=== PATIENT | female | born 1950 | race Caucasian/White ===

== ENCOUNTER → 2016-08-05 | Outpatient (CLI) | payer OTHER, MEDICARE ==
[~2016-08-05] MED LIST: BUPIVACAINE/PF 0.5% ONE; LIDOCAINE 1%, 20ML ONE; ROPivacaine/PF 0.2%, 10 ML ONE; SODIUM BICARBONATE 4.2%, 5ML ONE; TRIAMCINOLONE ACETONIDE 40 MG/ML, 1ML ONE
== END | disposition home or self-care (01) ==
LOC: RAD 12:45
PROVIDERS: ATTEND Nurse Practitioner
DX: M06.872 Other specified rheumatoid arthritis, left ankle and foot (principal); E11.9 Type 2 diabetes mellitus without complications
CPT/HCPCS: 77002; J2795; J3301; J3490

== ENCOUNTER 2016-11-01 06:39 | Day surgery (SDC) | payer OTHER, MEDICARE ==
[~2016-11-01] VITALS: Ht 157.5 cm; Wt 121.8 kg
[~2016-11-01 06:39] MED LIST changes: +ALBU8.5H3 INH; +AMLO10TA2 PO; +ASCO-96 PO; +ASPI-496 PO; +ATOR10TA9 PO; +BECL8.7A5 INH; -BUPIVACAINE/PF 0.5% ONE; +CALC1TAB PO; +CHOL10003 PO; +CYCL-259 PO; +FURO20TA3 PO; +GABA300C10 PO; +GLYC2TAB13 PO; +IPRA3AMP INH; -LIDOCAINE 1%, 20ML ONE; +LOSA100T6 PO; +METF500T PO; +METF500T4 PO; +MULT-516 PO; +OMEG1CAP57 PO; +RALO60TA12 PO; -ROPivacaine/PF 0.2%, 10 ML ONE; +SITA50TA PO; -SODIUM BICARBONATE 4.2%, 5ML ONE; -TRIAMCINOLONE ACETONIDE 40 MG/ML, 1ML ONE; +VITA1TAB19 PO; +Vitamin B12 PO; +[UNRECOGNIZED DRUG - OTHER] PO; +nexium PO
[2016-11-01] MEDS ORDERED: LACTATED RINGERS 1,000 ML IV SCH (07:05)
[2016-11-01 07:12] VITALS: BP 170/79
[2016-11-01] MEDS ORDERED: PROPOFOL 10 MG/ML, 20ML ONE (08:36)
[2016-11-01] MEDS ORDERED: ONDANSETRON 2MG/ML, 2ML IVPush PRN (09:30)
[2016-11-01] MEDS ORDERED: MIDAZOLAM 1 MG/ML, 2ML IV PRN (09:30)
[2016-11-01] MEDS ORDERED: ALBUTEROL/IPRATROPIUM 2.5MG/0.5MG, 3 ML NPPB PRN (09:30)
[2016-11-01] MEDS ORDERED: METOCLOPRAMIDE 5 MG/ML, 2ML IV PRN (09:30)
[2016-11-01] MEDS ORDERED: hydrALAzine 20 MG/ML, 1ML IV PRN (09:30)
[2016-11-01] MEDS ORDERED: PROMETHAZINE 25 MG/ML, 1ML IV PRN (09:30)
[2016-11-01] MEDS ORDERED: LABETALOL 5MG/ML, 20ML IV PRN (09:30)
[2016-11-01] MEDS ORDERED: OXYcodone 5 MG/5 ML ORAL.SOL UDC PO PRN (09:30)
[2016-11-01] MEDS ORDERED: FENTANYL PF 100 MCG/2ML IV PRN (09:30)
[2016-11-01] MEDS ORDERED: HYDROmorphone 1 MG/ML, 1ML IV PRN (09:30)
[2016-11-01] MEDS ORDERED: ACETAMINOPHEN 325 MG TABLET PO PRN (09:30)
== END 2016-11-01 10:05 ==
LOC: OUT 06:39
PROVIDERS: ATTEND Internal Medicine Gastroenterology
DX: Z09 Encounter for follow-up examination after completed treatment for conditions other than malignant neoplasm (principal); Z86.010 Personal history of colon polyps; K57.30 Diverticulosis of large intestine without perforation or abscess without bleeding; K64.4 Residual hemorrhoidal skin tags; J45.909 Unspecified asthma, uncomplicated; I10 Essential (primary) hypertension; Z87.39 Personal history of other diseases of the musculoskeletal system and connective tissue; Z88.5 Allergy status to narcotic agent; Z88.8 Allergy status to other drugs, medicaments and biological substances; Z91.09 Other allergy status, other than to drugs and biological substances
CPT/HCPCS: 82962; G0105; J2704; J7120

== ENCOUNTER → 2017-03-10 | Outpatient (CLI) | payer OTHER, MEDICARE ==
[~2017-03-10] MED LIST changes: -ALBU8.5H3 INH; +ALBU8.5H8 INH; -BECL8.7A5 INH; +BECL8.7A7 INH; -GLYC2TAB13 PO; +GLYC2TAB21 PO; +REGADENOSON 0.4 MG/5 ML SYRINGE ONE
== END | disposition home or self-care (01) ==
LOC: CFH 12:05
PROVIDERS: ATTEND Internal Medicine Cardiovascular Disease
DX: R07.89 Other chest pain (principal); I10 Essential (primary) hypertension; E11.9 Type 2 diabetes mellitus without complications
CPT/HCPCS: 78452; 93017; A9502; J2785

== ENCOUNTER → 2017-06-13 | Outpatient (CLI) | payer OTHER, MEDICARE ==
[~2017-06-13] MED LIST changes: +LIDOCAINE 1%, 20ML ONE; -REGADENOSON 0.4 MG/5 ML SYRINGE ONE; +ROPivacaine/PF 0.2%, 10 ML ONE; +TRIAMCINOLONE ACETONIDE 40 MG/ML, 1ML ONE
== END | disposition home or self-care (01) ==
LOC: RAD 12:42
PROVIDERS: ATTEND Orthopaedic Surgery
DX: M72.2 Plantar fascial fibromatosis (principal)
CPT/HCPCS: 20605; 77002; J2795; J3301; J3490

== ENCOUNTER → 2017-10-24 | Outpatient (CLI) | payer MEDICARE, OTHER ==
[~2017-10-24] MED LIST changes: -IPRA3AMP INH; +IPRA3AMP30 INH; -LIDOCAINE 1%, 20ML ONE; -METF500T4 PO; +METF500T5 PO; -ROPivacaine/PF 0.2%, 10 ML ONE; -TRIAMCINOLONE ACETONIDE 40 MG/ML, 1ML ONE
== END | disposition home or self-care (01) ==
LOC: CFH 10:08
PROVIDERS: ATTEND Internal Medicine Critical Care Medicine
DX: I10 Essential (primary) hypertension (principal); E11.9 Type 2 diabetes mellitus without complications; K21.9 Gastro-esophageal reflux disease without esophagitis
CPT/HCPCS: 71250

== ENCOUNTER → 2017-11-13 | Outpatient (CLI) | payer MEDICARE, OTHER ==
[~2017-11-13] MED LIST changes: +LIDOCAINE-MPF 2%, 2ML ONE; +ROPivacaine/PF 0.2%, 10 ML ONE; +TRIAMCINOLONE ACETONIDE 40 MG/ML, 1ML ONE
== END | disposition home or self-care (01) ==
LOC: RAD 09:04
PROVIDERS: ATTEND Orthopaedic Surgery
DX: M19.072 Primary osteoarthritis, left ankle and foot (principal); Z88.1 Allergy status to other antibiotic agents; Z88.5 Allergy status to narcotic agent; Z88.8 Allergy status to other drugs, medicaments and biological substances; Z87.891 Personal history of nicotine dependence
CPT/HCPCS: 20605; 77002; J3301; J2795; J3490

== ENCOUNTER 2018-04-21 11:39 | Outpatient (CLI) | payer MEDICARE, OTHER ==
[~2018-04-21 11:39] MED LIST changes: -AMLO10TA2 PO; +AMLO10TA8 PO; -LIDOCAINE-MPF 2%, 2ML ONE; +LOSA100T14 PO; -LOSA100T6 PO; +METF500T17 PO; -METF500T5 PO; -ROPivacaine/PF 0.2%, 10 ML ONE; -TRIAMCINOLONE ACETONIDE 40 MG/ML, 1ML ONE
[2018-04-21] MEDS ORDERED: ROPivacaine/PF 0.2%, 10 ML ONE (12:03)
[2018-04-21] MEDS ORDERED: TRIAMCINOLONE ACETONIDE 40 MG/ML, 1ML ONE (12:03)
== END 2018-04-21 23:59 | disposition home or self-care (01) ==
LOC: RAD 11:39
PROVIDERS: ATTEND Nurse Practitioner
DX: M19.072 Primary osteoarthritis, left ankle and foot (principal)
CPT/HCPCS: 20605; 77002; J2795; J3301

== ENCOUNTER 2019-01-01 08:34 | Outpatient (CLI) | payer MEDICARE, OTHER ==
[2019-01-01] MEDS ORDERED: BUPIVACAINE/PF 0.5% ONE (08:55)
[2019-01-01] MEDS ORDERED: LIDOCAINE-MPF 1%, 5ML ONE (08:55)
[2019-01-01] MEDS ORDERED: TRIAMCINOLONE ACETONIDE 40 MG/ML, 1ML ONE (08:55)
== END 2019-01-01 23:59 | disposition home or self-care (01) ==
LOC: RAD 08:34
PROVIDERS: ATTEND Nurse Practitioner
DX: M19.072 Primary osteoarthritis, left ankle and foot (principal)
CPT/HCPCS: 20600; 77002; J3301; 10005

== ENCOUNTER 2019-06-04 10:04 | Outpatient (CLI) | payer MEDICARE, OTHER | END 2019-06-04 23:59 | disposition home or self-care (01) | LOC: CFH 10:04 | PROVIDERS: ATTEND Internal Medicine Cardiovascular Disease | DX: I25.10 Atherosclerotic heart disease of native coronary artery without angina pectoris (principal); E78.2 Mixed hyperlipidemia | CPT/HCPCS: 75571 ==

== ENCOUNTER 2019-06-14 14:17 | Outpatient (CLI) | payer MEDICARE, OTHER ==
[2019-06-14] MEDS ORDERED: ROPivacaine/PF 0.2%, 10 ML ONE (14:51)
[2019-06-14] MEDS ORDERED: LIDOCAINE 1%, 10ML ONE (14:51)
[2019-06-14] MEDS ORDERED: TRIAMCINOLONE ACETONIDE 40 MG/ML, 1ML ONE (14:51)
[2019-06-14] MEDS ORDERED: BUPIVACAINE/PF 0.5% ONE (14:51)
== END 2019-06-14 23:59 | disposition home or self-care (01) ==
LOC: RAD 14:17
PROVIDERS: ATTEND Orthopaedic Surgery
DX: M13.872 Other specified arthritis, left ankle and foot (principal); I10 Essential (primary) hypertension; E11.9 Type 2 diabetes mellitus without complications; K21.9 Gastro-esophageal reflux disease without esophagitis; J45.909 Unspecified asthma, uncomplicated; G89.29 Other chronic pain; Z88.8 Allergy status to other drugs, medicaments and biological substances; Z87.19 Personal history of other diseases of the digestive system; Z87.09 Personal history of other diseases of the respiratory system; Z87.448 Personal history of other diseases of urinary system
CPT/HCPCS: 20600; 77002; J2795; 20605; 20610; J3301

== ENCOUNTER → 2020-03-17 | Outpatient (CLI) | payer MEDICARE, OTHER ==
[~2020-03-17] MED LIST changes: +AMLO-211 PO; -AMLO10TA8 PO
== END | disposition home or self-care (01) ==
LOC: RAD 07:28
PROVIDERS: ATTEND Internal Medicine Gastroenterology
DX: K44.9 Diaphragmatic hernia without obstruction or gangrene (principal); K21.9 Gastro-esophageal reflux disease without esophagitis; R11.0 Nausea; Z98.84 Bariatric surgery status
CPT/HCPCS: 74240

== ENCOUNTER → 2020-08-08 | Outpatient (CLI) | payer MEDICARE, OTHER ==
[~2020-08-08] MED LIST changes: -CYCL-259 PO; +CYCL10TA2 PO; +REGADENOSON 0.4 MG/5 ML SYRINGE ONE
== END | disposition home or self-care (01) ==
LOC: CFH 12:51
PROVIDERS: ATTEND Internal Medicine Cardiovascular Disease
DX: Z01.810 Encounter for preprocedural cardiovascular examination (principal); I10 Essential (primary) hypertension
CPT/HCPCS: 78452; 93017; A9502; J2785